=== PATIENT | female | born 1955 | race Caucasian/White ===

== ENCOUNTER 2017-01-15 22:35 | Emergency (ER) | payer OTHER ==
[2017-01-15 22:52] VITALS: BP 209/83; PULSE 82; RESP 18; TEMP 98.4; O2SAT 94
== END 2017-01-15 22:49 | disposition left against medical advice (07) ==
LOC: CED 22:35
DX: R07.89 Other chest pain (principal); R10.9 Unspecified abdominal pain; Z53.21 Procedure and treatment not carried out due to patient leaving prior to being seen by health care provider

== ENCOUNTER → 2017-04-12 | Outpatient (CLI) | payer OTHER | LOC: CIMAGING 10:56 | DX: Z12.31 Encounter for screening mammogram for malignant neoplasm of breast (principal); Z80.3 Family history of malignant neoplasm of breast | CPT/HCPCS: G0202 ==

== ENCOUNTER → 2018-04-15 | Outpatient (CLI) | payer OTHER | LOC: CIMAGING 14:15 | PROVIDERS: ATTEND Family Medicine | DX: Z12.31 Encounter for screening mammogram for malignant neoplasm of breast (principal); Z80.3 Family history of malignant neoplasm of breast ==

== ENCOUNTER → 2019-05-01 | Outpatient (CLI) | payer OTHER | LOC: CIMAGING 09:30 ==

== ENCOUNTER → 2019-05-16 | Outpatient (CLI) | payer OTHER | LOC: EMCIMAGING 08:48 ==